=== PATIENT | female | born 1985 | race Two or more races ===

== ENCOUNTER 2022-04-20 17:20 | Emergency (ER) | payer MEDICAID ==
[~2022-04-20] VITALS: Ht 162.6 cm; Wt 49.9 kg
[2022-04-20 17:35] VITALS: BP 137/75
--- NOTE | 2022-04-20 18:00 | NUR ---
RECEIVED pt 36YRS FEMALE UNABLE TO REMOVED TEMPON WAS INSERTED TODAY AT 0900 AM NO PAIN
--- NOTE | 2022-04-20 18:10 | NUR ---
PELVIC CHECKED DONE BY PROVEDER AND WITH DR. ALLEN AT BED SIDE NOTHING NO TEMPON
== END 2022-04-20 18:27 | disposition home or self-care (01) ==
LOC: ER 17:35
DX: T19.2XXA Foreign body in vulva and vagina, initial encounter (principal); X58.XXXA Exposure to other specified factors, initial encounter; Y93.89 Activity, other specified; Y92.89 Other specified places as the place of occurrence of the external cause; Y99.8 Other external cause status